=== PATIENT | female | born 1935 | race Caucasian/White ===

== ENCOUNTER → 2017-02-12 | Outpatient (CLI) | payer MEDICARE, OTHER ==
[~2017-02-12] MED LIST: FERR142T13 PO; HYDR12.58 PO; LOSA100T6 PO; TURM500C8 PO
[2017-02-12 09:03] LABS: BASO % 1 % (0-3); EOS % 1 % (0-3); HEMATOCRIT 41.4 % (36.0-47.0); HEMOGLOBIN 13.6 g/dL (12.0-15.5); LYMPH % 13 % (24-48); MEAN CORPUSCULAR HEMOGLOBIN 29 pg (25-35); MEAN CORPUSCULAR HGB CONC 33 g/dL (31-37); MEAN CORPUSCULAR VOLUME 88 fL (79-100); MONO % 8 % (0-9); NEUT % 78 % (31-73); PLATELET COUNT 277 x10^3/uL (140-400); RED CELL DISTRIBUTION WIDTH 14.4 % (11.5-14.5)
[2017-02-12 09:05] LABS: BILIRUBIN,URINE NEGATIVE (NEG); GLUCOSE,URINE NEGATIVE (NEG); NITRITE,URINE NEGATIVE (NEG); PH,URINE 5.5; PROTEIN,URINE NEGATIVE (NEG-TRACE); UROBILINOGEN,URINE 0.2 mg/dL (0.2 mg/dL)
[2017-02-12 09:14] LABS: INR 1.1 (0.8-1.1); PROTHROMBIN TIME PATIENT 13.8 SEC (11.7-14.0)
[2017-02-12 09:31] LABS: ALBUMIN 3.7 g/dL (3.4-5.0); CALCIUM 9.2 mg/dL (8.5-10.1); GFR 53.3; POTASSIUM 3.8 mmol/L (3.5-5.1)
[2017-02-12 09:34] LABS: BACTERIA,URINE FEW /HPF (0-FEW); RBC,URINE 0 /HPF (0-2); WBC,URINE OCC /HPF (0-4)
[2017-02-12 09:35] LABS: SQUAMOUS EPITHELIAL CELL,UR MANY /LPF
--- NOTE | 2017-02-12 12:04 | EKG ---
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
--- NOTE | 2017-02-12 12:41 | RAD ---
Exam: PA and lateral chest radiograph History: Hypertension, preoperative for left knee arthroplasty. Comparison: None. Findings: Cardiomediastinal silhouette is within normal limits for size. Bilateral lung holder are free of focal infiltrate. No pleural effusion is seen. Right axillary clips are seen. Both lungs demonstrate mild fibrotic change. Impression: No acute cardiopulmonary process.
== END | disposition home or self-care (01) ==
LOC: SURGPAT 16:27
PROVIDERS: ATTEND Orthopaedic Surgery
DX: Z01.818 Encounter for other preprocedural examination (principal); I10 Essential (primary) hypertension
CPT/HCPCS: 36415; 71020; 80048; 81001; 82040; 85027; 85610; 85651; 85730; 87641; 93005

== ENCOUNTER 2019-04-18 21:57 | Emergency (ER) | payer MEDICARE, OTHER ==
[~2019-04-18] VITALS: Ht 157.5 cm; Wt 99.8 kg
[~2019-04-18 21:57] MED LIST changes: +CELE200C PO; +LOSA100T14 PO; -LOSA100T6 PO; +TURM500C4 PO; -TURM500C8 PO
[2019-04-18 22:00] VITALS: BP 161/69
--- NOTE | 2019-04-18 23:13 | RAD ---
EXAM: Chest, single view. HISTORY: Chest pain. COMPARISON: 02/12/2017 FINDINGS: A frontal view of the chest is obtained. There is mild diffuse interstitial prominence. There is no tyrone congestion, consolidation, pleural effusion or pneumothorax. The heart is normal in size. IMPRESSION: No acute pulmonary finding. Electronically signed by: Beth Marinelli MD (04/18/2019 11:10 PM) [facility]
[2019-04-18 23:14] LABS: BASO % 1 % (0-3); EOS # 0.2 x10^3/uL (0.0-0.7); EOS % 2 % (0-3); HEMATOCRIT 37.3 % (36.0-47.0); HEMOGLOBIN 12.7 g/dL (12.0-15.5); LYMPH # 1.4 x10^3/uL (1.0-4.8); LYMPH % 16 % (24-48); MEAN CORPUSCULAR HEMOGLOBIN 30 pg (25-35); MEAN CORPUSCULAR HGB CONC 34 g/dL (31-37); MEAN CORPUSCULAR VOLUME 88 fL (79-100); MONO # 0.8 x10^3/uL (0.0-1.1); MONO % 9 % (0-9); NEUT # 6.2 x10^3uL (1.8-7.7); NEUT % 73 % (31-73); PLATELET COUNT 247 x10^3/uL (140-400); RED BLOOD COUNT 4.23 x10^6/uL (3.50-5.40); RED CELL DISTRIBUTION WIDTH 13.7 % (11.5-14.5); WHITE BLOOD COUNT 8.6 x10^3/uL (4.0-11.0)
[2019-04-18 23:24] LABS: CALCIUM 9.1 mg/dL (8.5-10.1); GFR 53.1; POTASSIUM 3.7 mmol/L (3.5-5.1)
[2019-04-18 23:30] LABS: ALBUMIN 3.5 g/dL (3.4-5.0); ALBUMIN/GLOBULIN RATIO 1.2 (1.0-1.7); TOTAL BILIRUBIN 0.5 mg/dL (0.2-1.0); TOTAL PROTEIN 6.4 g/dL (6.4-8.2)
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
--- NOTE | 2019-04-21 06:29 | EKG ---
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
== END 2019-04-18 23:55 | disposition home or self-care (01) ==
LOC: ER 21:57
DX: R00.2 Palpitations (principal); M54.6 Pain in thoracic spine; F32.9 Major depressive disorder, single episode, unspecified; I10 Essential (primary) hypertension; Z90.11 Acquired absence of right breast and nipple; Z96.649 Presence of unspecified artificial hip joint; Z96.652 Presence of left artificial knee joint
CPT/HCPCS: 36415; 71045; 80053; 84484; 85025; 93005; 99285-25

== ENCOUNTER 2020-06-22 08:24 | Emergency (ER) | payer MEDICARE, OTHER ==
[~2020-06-22] VITALS: Ht 157.5 cm; Wt 102.0 kg
[2020-06-22 08:45] VITALS: BP 162/72
[2020-06-22] MEDS ORDERED: CEPHALEXIN 250 MG CAPSULE. PO STA (08:51)
--- NOTE | 2020-06-22 09:20 | PHYS DOC ---
Past Medical History Past Medical History: Diverticulitis, Hypertension Past Surgical History: Hip Replacement, Knee Replacement, Other Additional Past Surgical Histo: 2017-Left knee, 2002-Right total mastectomy, 1999-Colon resection. Smoking Status: Never Smoker Alcohol Use: None Drug Use: None General Adult EDM: Chief Complaint: HAND PROBLEM HPI: HPI: Patient is a 84 year old Patient is an 83-year-old female who presented to ER today for evaluation of redness and swelling of her left hand that spread to her left forearm due to a wasp stung was yesterday. Patient said the wasp stung her on her left ring finger yesterday. Patient took some Benadryl last night, woke up this morning with swelling on her left ring finger spread to the hand and up to her proximal forearm area so she came here for evaluation. Patient has history of breast cancer, had mastectomy on the left side. Patient denies any fever, no trouble breathing, no trouble swallowing. Patient denies any chest pain, no cough, no nausea vomiting, no abdominal pain. Review of Systems: Review of Systems: Constitutional: Denies fever or chills. [] Eyes: Denies change in visual acuity. [] HENT: Denies nasal congestion or sore throat. [] Respiratory: Denies cough or shortness of breath. [] Cardiovascular: Denies chest pain or edema. [] GI: Denies abdominal pain, nausea, vomiting, bloody stools or diarrhea. [] : Denies dysuria. [] Musculoskeletal: Denies back pain or joint pain. [] Integument: Positive for left hand swelling and redness. Neurologic: Denies headache, focal weakness or sensory changes. [] Endocrine: Denies polyuria or polydipsia. [] Lymphatic: Denies swollen glands. [] Psychiatric: Denies depression or anxiety. [] Heart Score: Risk Factors: Risk Factors: DM, Current or recent (<one month) smoker, HTN, HLP, family history of CAD, obesity. Risk Scores: Score 0 - 3: 2.5% MACE over next 6 weeks - Discharge Home Score 4 - 6: 20.3% MACE over next 6 weeks - Admit for Clinical Observation Score 7 - 10: 72.7% MACE over next 6 weeks - Early Invasive Strategies Current Medications: Current Medications Medications (Trade) Dose Ordered Sig/Anjel Start Time Stop Time Status Last Admin Dose Admin Cephalexin HCl (Keflex) 500 mg 1X STAT 06/22/20 08:51 06/22/20 08:57 DC Diphenhydramine HCl (Benadryl) 50 mg 1X ONCE 06/22/20 09:30 06/22/20 09:31 Methylprednisolone Sodium Succinate (SOLU-Medrol 125MG VIAL) 125 mg 1X ONCE 06/22/20 09:30 06/22/20 09:31 Allergies: Allergies: Allergies Coded Allergies Type Severity Reaction Last Updated Verified No Known Drug Allergies 03/06/17 No Physical Exam: PE: Constitutional: Well developed, well nourished, no acute distress, non-toxic appearance. [] HENT: Normocephalic, atraumatic, bilateral external ears normal, oropharynx moist, no oral exudates, nose normal. [] Eyes: PERRLA, EOMI, conjunctiva normal, no discharge. [] Neck: Normal range of motion, no tenderness, supple, no stridor. [] Cardiovascular:Heart rate regular rhythm, no murmur [] Lungs & Thorax: Bilateral breath sounds clear to auscultation [] Abdomen: Bowel sounds normal, soft, no tenderness, no masses, no pulsatile masses. [] Skin: There is swelling, erythema, tender to palpation on the flexor surface left ring finger and the hypothenar eminence of the left hand, there is streaking erythema along the flexor surface the ulnar side of the left forearm. There is no angioedema, patient can flex and extend her fingers without any problem. Back: No tenderness, no CVA tenderness. [] Extremities: No tenderness, no cyanosis, no clubbing, ROM intact, no edema. [] Neurologic: Alert and oriented X 3, normal motor function, normal sensory function, no focal deficits noted. [] Psychologic: Affect normal, judgement normal, mood normal. [] Current Patient Data: Vital Signs: Vital Signs Date Time Temp Pulse Resp B/P (MAP) Pulse Ox O2 Delivery O2 Flow Rate FiO2 06/22/20 08:45 97.9 60 18 162/72 (102) 94 Room Air 97.9 EKG: EKG: [] Radiology/Procedures: Radiology/Procedures: [] Course & Med Decision Making: Course & Med Decision Making Pertinent Labs and Imaging studies reviewed. (See chart for details) Patient is an 83-year-old female who presented to ER today for evaluation of redness and swelling of her left hand that spread to her left forearm due to a wasp stung was yesterday. Patient had no respiratory distress, no evidence of angioedema, patient was given 125 mg Solu-Medrol IM injection and 50 mg of Benadryl injection. There is some redness on her left ring finger, she will be given antibiotic to prevent infection. She will be also given prednisone to take at home. She will need to follow-up with her family doctor in a couple day for reevaluation. Dragon Disclaimer: Dragon Disclaimer: This electronic medical record was generated, in whole or in part, using a voice recognition dictation system. Departure Departure Impression: Primary Impression: Wasp sting Additional Impression: Cellulitis of hand, left Disposition: HOME, SELF-CARE Condition: STABLE Referrals: JUDY BURLESON MD (PCP) PLEASE FOLLOW UP WITH YOUR FAMILY DOCTOR KASSIDY FOR REEVALUATION Patient Instructions: Bee, Wasp, or Hornet Sting, Cellulitis Additional Instructions: Thank you for visiting our Emergency Department. We appreciate you trusting us with your care. If any additional problems come up don't hesitate to return to visit us. Please follow up with your primary care provider so they can plan additional care if needed and know about the problem that you had. If symptoms worsen come back to the Emergency Department. Any concerning symptoms that start such as chest pain, shortness of air, weakness or numbness on one side of the body, running high fevers or any other concerning symptoms return to the ER. Scripts Cephalexin (CEPHALEXIN) 500 Mg Capsule 1 CAP PO QID for 7 Days, #28 CAP Prov: FRANCE MUNOZ DO 06/22/20 Prednisone (PREDNISONE) 20 Mg Tablet 2 TAB PO DAILY for 5 Days, #10 TAB Prov: FRANCE MUNOZ DO 06/22/20 Justicifation of Admission Dx: Justifications for Admission: Justification of Admission Dx: N/A FRANCE MUNOZ DO Jun 22, 2020 09:20
[2020-06-22] MEDS ORDERED: PRED20TA PO (09:27)
[2020-06-22] MEDS ORDERED: CEPH500C PO (09:27)
[2020-06-22] MEDS ORDERED: methylPREDNISolone SOD SUCC PF 125 MG/2 ML VIAL. IM ONE (09:30)
[2020-06-22] MEDS ORDERED: diphenhydrAMINE 50 MG/ML VIAL IM ONE (09:30)
== END 2020-06-22 09:34 | disposition home or self-care (01) ==
LOC: ER 08:24
DX: T63.461A Toxic effect of venom of wasps, accidental (unintentional), initial encounter (principal); L03.114 Cellulitis of left upper limb; I10 Essential (primary) hypertension; Y92.89 Other specified places as the place of occurrence of the external cause
CPT/HCPCS: 96372; 99284; J1200; J2930

== ENCOUNTER 2022-02-20 05:53 | Emergency (ER) | payer MEDICARE, OTHER ==
[~2022-02-20] VITALS: Ht 157.5 cm; Wt 104.5 kg
[~2022-02-20 05:53] MED LIST changes: +CEPH500C PO; +PRED20TA PO
--- NOTE | 2022-02-20 06:28 | PHYS DOC ---
Past Medical History Past Medical History: Diverticulitis, Hypertension Past Surgical History: Other Additional Past Surgical Histo: Hip and knee replacement, Masectomy on the ri ght, bowel resection Smoking Status: Never Smoker Alcohol Use: None Drug Use: None General Adult EDM: Chief Complaint: CONSTIPATION HPI: HPI: Patient is a 86 year old comes in with a complaint of constipation for the last day and a half. Patient states that she feels fullness in her rectum but is unable to pass the stool. Patient has been constipated in the past and this states that she did try milk of magnesia which did not help. No fevers or chills. No nausea or vomiting Review of Systems: Review of Systems: Constitutional: Denies fever or chills. Eyes: Denies change in visual acuity. HENT: Denies nasal congestion or sore throat. Respiratory: Denies cough or shortness of breath. Cardiovascular: Denies chest pain or edema. GI: Rectal discomfort, constipation . denies abdominal pain, nausea, vomiting, bloody stools or diarrhea. : Denies dysuria. Musculoskeletal: Denies back pain or joint pain. Integument: Denies rash. Neurologic: Denies headache, focal weakness or sensory changes. Endocrine: Denies polyuria or polydipsia. Lymphatic: Denies swollen glands. Psychiatric: Denies depression or anxiety. Heart Score: C/O Chest Pain: No Risk Factors: Risk Factors: DM, Current or recent (<one month) smoker, HTN, HLP, family history of CAD, obesity. Risk Scores: Score 0 - 3: 2.5% MACE over next 6 weeks - Discharge Home Score 4 - 6: 20.3% MACE over next 6 weeks - Admit for Clinical Observation Score 7 - 10: 72.7% MACE over next 6 weeks - Early Invasive Strategies Current Medications: Current Medications Medications (Trade) Dose Ordered Sig/Anjel Start Time Stop Time Status Last Admin Dose Admin Sodium Monofluorophosphate (Fleet Adult) 133 ml 1X ONCE 02/20/22 07:00 02/20/22 07:01 Allergies: Allergies: Allergies Coded Allergies Type Severity Reaction Last Updated Verified No Known Drug Allergies 02/20/22 No Physical Exam: PE: Constitutional: Well developed, well nourished, no acute distress, non-toxic appearance. uncomfortable HENT: Normocephalic, atraumatic, bilateral external ears normal, oropharynx moist, no oral exudates, nose normal. Eyes: PERRLA, EOMI, conjunctiva normal, no discharge. Neck: Normal range of motion, no tenderness, supple, no stridor. Cardiovascular:Heart rate regular rhythm, no murmur Lungs & Thorax: Bilateral breath sounds clear to auscultation Abdomen: Bowel sounds normal, soft, no tenderness, no masses, no pulsatile masses. Skin: Warm, dry, no erythema, no rash. Back: No tenderness, no CVA tenderness. Extremities: No tenderness, no cyanosis, no clubbing, ROM intact, no edema. Neurologic: Alert and oriented X 3, normal motor function, normal sensory fu nction, no focal deficits noted. Psychologic: Affect normal, judgement normal, mood normal. Current Patient Data: Labs: Laboratory Tests Test 02/20/22 06:35 White Blood Count 8.4 x10^3/uL Red Blood Count 4.70 x10^6/uL Hemoglobin 13.8 g/dL Hematocrit 41.0 % Mean Corpuscular Volume 87 fL Mean Corpuscular Hemoglobin 29 pg Mean Corpuscular Hemoglobin Concent 34 g/dL Red Cell Distribution Width 14.0 % Platelet Count 274 x10^3/uL Neutrophils (%) (Auto) 81 % Lymphocytes (%) (Auto) 9 % Monocytes (%) (Auto) 10 % Eosinophils (%) (Auto) 1 % Basophils (%) (Auto) 0 % Neutrophils # (Auto) 6.8 x10^3/uL Lymphocytes # (Auto) 0.7 x10^3/uL Monocytes # (Auto) 0.8 x10^3/uL Eosinophils # (Auto) 0.0 x10^3/uL Basophils # (Auto) 0.0 x10^3/uL Sodium Level 141 mmol/L Potassium Level 4.0 mmol/L Chloride Level 104 mmol/L Carbon Dioxide Level 28 mmol/L Anion Gap 9 Blood Urea Nitrogen 21 mg/dL Creatinine 1.1 mg/dL Estimated GFR (Cockcroft-Gault) 47.2 BUN/Creatinine Ratio 19 Glucose Level 132 mg/dL Calcium Level 9.0 mg/dL Total Bilirubin 0.5 mg/dL Aspartate Amino Transf (AST/SGOT) 12 U/L Alanine Aminotransferase (ALT/SGPT) 23 U/L Alkaline Phosphatase 75 U/L Total Protein 7.7 g/dL Albumin 4.0 g/dL Albumin/Globulin Ratio 1.1 Current Medications Medications (Trade) Dose Ordered Sig/Anjel Route PRN Reason Start Time Stop Time Status Last Admin Dose Admin Sodium Monofluorophosphate (Fleet Adult) 133 ml 1X ONCE MI 02/20/22 07:00 02/20/22 07:01 DC 02/20/22 06:46 Magnesium Citrate (Citroma) 296 ml 1X ONCE PO 02/20/22 07:00 02/20/22 07:01 DC Vital Signs: Vital Signs Date Time Temp Pulse Resp B/P (MAP) Pulse Ox O2 Delivery O2 Flow Rate FiO2 02/20/22 05:55 97.8 93 20 140/70 (93) 99 Room Air 97.8 EKG: EKG: [] Radiology/Procedures: Radiology/Procedures: []Impression: 1. Nonobstructed bowel gas pattern. 2. Moderate distal colonic and rectal stool. Course & Med Decision Making: Course & Med Decision Making Pertinent Labs and Imaging studies reviewed. (See chart for details) [] Patient was able to move her bowels. States that she feels much better. Return precautions were discussed lab work and x-rays reviewed Ivelisse Disclaimer: Ivelisse Disclaimer: This electronic medical record was generated, in whole or in part, using a voice recognition dictation system. Departure Departure Referrals: JUDY BURLESON MD (PCP) BHAVIK HARRIS DO Feb 20, 2022 06:28
[2022-02-20 06:43] LABS: BASO % 0 % (0-3); EOS % 1 % (0-3); HEMOGLOBIN 13.8 g/dL (12.0-15.5); LYMPH # 0.7 x10^3/uL (1.0-4.8); LYMPH % 9 % (24-48); MEAN CORPUSCULAR HEMOGLOBIN 29 pg (25-35); MEAN CORPUSCULAR HGB CONC 34 g/dL (31-37); MEAN CORPUSCULAR VOLUME 87 fL (79-100); MONO # 0.8 x10^3/uL (0.0-1.1); MONO % 10 % (0-9); NEUT # 6.8 x10^3/uL (1.8-7.7); NEUT % 81 % (31-73); PLATELET COUNT 274 x10^3/uL (140-400); WHITE BLOOD COUNT 8.4 x10^3/uL (4.0-11.0)
[2022-02-20 06:54] LABS: CREATININE 1.1 mg/dL (0.6-1.0); GFR 47.2
[2022-02-20 07:00] LABS: ALBUMIN/GLOBULIN RATIO 1.1 (1.0-1.7); TOTAL BILIRUBIN 0.5 mg/dL (0.2-1.0); TOTAL PROTEIN 7.7 g/dL (6.4-8.2)
[2022-02-20] MEDS ORDERED: MAGNESIUM CITRATE 296 ML SOLUTION. PO ONE (07:00)
[2022-02-20] MEDS ORDERED: SODIUM PHOSPHATES 19/7GM 133 ML ENEMA. PR ONE (07:00)
[2022-02-20 08:00] VITALS: BP 145/61
--- NOTE | 2022-02-20 08:10 | RAD ---
XR ABDOMEN COMP ACUTE History: Reason: abdominal pain / Spl. Instructions: / History: Technique: Supine and upright views the abdomen. Comparison: None. Findings: Mild bibasilar linear atelectasis. No consolidation. No pleural effusion. No pneumothorax. Normal hea rt size. Postop changes right axilla. No pneumoperitoneum. Mild small bowel gas. Air and stool scatte red throughout the colon. Moderate distal colonic and rectal stool burden. Left hip arthroplasty. Pos toperative changes overlying the pelvis. Multilevel lumbar spondylosis with rightward curvature. Impression: 1. Nonobstructed bowel gas pattern. 2. Moderate distal colonic and rectal stool. Electronically signed by: David Chery DO (02/20/2022 8:08 AM) [id number]
== END 2022-02-20 08:50 | disposition home or self-care (01) ==
LOC: ER 05:53
DX: K59.00 Constipation, unspecified (principal); I10 Essential (primary) hypertension
CPT/HCPCS: 36415; 74022; 80053; 85025; 99285-25